=== PATIENT | female | born 1965 | race Caucasian/White ===

== ENCOUNTER → 2016-09-26 | Outpatient (CLI) | payer BC ==
--- NOTE | 2016-09-26 16:50 | XR ---
Lumbosacral spine HISTORY: Low back pain 5 views of the lumbosacral spine Lumbar vertebral bodies show preserved height, alignment, and bone mineralization is reduced. No spon dylolysis. There is multilevel spondylosis. Loss of disc height present at the intervertebral levels. Sclerosis present in the lower lumbar spine posterior elements. There are vascular calcifications pr esent. IMPRESSION: Degenerative disc disease, osteopenia, facet arthropathy
== END | disposition home or self-care (01) ==
LOC: RADXRMAIN 14:39
PROVIDERS: ATTEND Family Medicine
DX: M51.36 Other intervertebral disc degeneration, lumbar region (principal); M46.86 Other specified inflammatory spondylopathies, lumbar region; M85.80 Other specified disorders of bone density and structure, unspecified site
CPT/HCPCS: 72110

== ENCOUNTER 2017-06-25 16:53 | Observation (INO) | payer BC ==
--- NOTE | 2017-06-25 17:26 | ED ---
General Adult HPI - General Chief complaint: Dizziness Stated complaint: Dizziness Time Seen by Provider: 06/25/17 17:00 Source: patient, RN notes reviewed Mode of arrival: wheelchair Limitations: no limitations - History of Present Illness Initial comments: This a 51-year-old female who presents emergency department with chief complaint of near syncopal episodes 2 in the last 12 hours. Patient states she got up in the middle the night was in the bathroom when all of a sudden she felt as though she's given a passout had it down to her knees before she did. Patient states she had another episode today and she decided to come the emergency department. Patient states at no time did she have any chest pain. Patient denies any difficulty breathing or shortness of breath. Patient denies any palpitations. Patient denies abdominal pain patient denies nausea vomiting diarrhea. Patient denied headache patient denied numbness weakness. Patient denies any current lightheadedness or dizziness. Patient states currently she feels fine and has no symptoms. - Related Data Home Medications Medication Instructions Recorded Confirmed ALPRAZolam [Xanax] 0.25 mg PO Q8H PRN 06/25/17 06/25/17 Atenolol [Tenormin] 50 mg PO BID 06/25/17 06/25/17 Losartan Potassium [Cozaar] 100 mg PO DAILY 06/25/17 06/25/17 Allergies Allergy/AdvReac Type Severity Reaction Status Date / Time codeine AdvReac Nausea & Verified 06/25/17 17:18 Vomiting Review of Systems ROS Statement: Those systems with pertinent positive or pertinent negative responses have been documented in the HPI. ROS Other: All systems not noted in ROS Statement are negative. Past Medical History Past Medical History: Hypertension Additional Past Medical History / Comment(s): palpitations History of Any Multi-Drug Resistant Organisms: None Reported Past Surgical History: Tonsillectomy Past Anesthesia/Blood Transfusion Reactions: No Reported Reaction Past Psychological History: No Psychological Hx Reported Smoking Status: Former smoker Past Alcohol Use History: None Reported Past Drug Use History: None Reported General Exam - General Exam Comments Initial Comments: GENERAL: Patient is well-developed and well-nourished. Patient is nontoxic and well- hydrated and is in no acute distress. ENT: Neck is soft and supple. No significant lymphadenopathy is noted. Oropharynx is clear. Moist mucous membranes. Neck has full range of motion without eliciting any pain. EYES: The sclera were anicteric and conjunctiva were pink and moist. Extraocular movements were intact and pupils were equal round and reactive to light. Eyelids were unremarkable. PULMONARY: Unlabored respirations. Good breath sounds bilaterally. No audible rales rhonchi or wheezing was noted. CARDIOVASCULAR: There is a regular rate and rhythm without any murmurs gallops or rubs. ABDOMEN: Soft and nontender with normal bowel sounds. No palpable organomegaly was noted. There is no palpable pulsatile mass. SKIN: Skin is clear with no lesions or rashes and otherwise unremarkable. NEUROLOGIC: Patient is alert and oriented x3. Cranial nerves II through XII are grossly intact. Motor and sensory are also intact. Normal speech, volume and content. Symmetrical smile. MUSCULOSKELETAL: Normal extremities with adequate strength and full range of motion. No lower extremity swelling or edema. No calf tenderness. LYMPHATICS: No significant lymphadenopathy is noted PSYCHIATRIC: Normal psychiatric evaluation. Limitations: no limitations Course Vital Signs 06/25/17 06/25/17 06/25/17 17:00 17:43 18:28 Temperature 98.1 F Pulse Rate 73 59 L Pulse Rate [ 60 Sitting] Pulse Rate [ 63 Standing] Pulse Rate [ 59 L Supine] Respiratory 20 16 Rate Blood Pressure 170/88 170/87 Blood Pressure 169/81 [Sitting] Blood Pressure 173/96 [Standing] Blood Pressure 186/95 [Supine] O2 Sat by Pulse 100 98 Oximetry Medical Decision Making - Medical Decision Making EKG shows normal sinus rhythm at 69 bpm W[place] interval 270 QRS is 72 QT interval 408 QTC is 437. Patient's EKG shows inverted T waves in the precordial leads these are seen in previous EKG. Chest x-ray shows no acute abnormality - Lab Data Result diagrams: 06/25/17 17:38 06/25/17 17:38 Lab Results 06/25/17 06/25/17 06/25/17 Range/Units 17:38 17:38 17:38 WBC 7.9 (3.8-10.6) k/uL RBC 4.59 (3.80-5.40) m/uL Hgb 13.9 (11.4-16.0) gm/dL Hct 42.4 (34.0-46.0) % MCV 92.4 (80.0-100.0) fL MCH 30.4 (25.0-35.0) pg MCHC 32.9 (31.0-37.0) g/dL RDW 13.9 (11.5-15.5) % Plt Count 302 (150-450) k/uL Neutrophils % 63 % Lymphocytes % 30 % Monocytes % 4 % Eosinophils % 1 % Basophils % 1 % Neutrophils # 4.9 (1.3-7.7) k/uL Lymphocytes # 2.3 (1.0-4.8) k/uL Monocytes # 0.4 (0-1.0) k/uL Eosinophils # 0.1 (0-0.7) k/uL Basophils # 0.1 (0-0.2) k/uL PT (9.0-12.0) sec INR (<1.2) APTT (22.0-30.0) sec Sodium 142 (137-145) mmol/L Potassium 4.2 (3.5-5.1) mmol/L Chloride 105 (98-107) mmol/L Carbon Dioxide 23 (22-30) mmol/L Anion Gap 14 mmol/L BUN 15 (7-17) mg/dL Creatinine 1.10 H (0.52-1.04) mg/dL Est GFR (MDRD) Af Amer >60 (>60 ml/min/1.73 sqM) Est GFR (MDRD) Non-Af 52 (>60 ml/min/1.73 sqM) Glucose 96 (74-99) mg/dL Calcium 10.6 H (8.4-10.2) mg/dL Magnesium 1.7 (1.6-2.3) mg/dL Total Bilirubin 0.4 (0.2-1.3) mg/dL AST 19 (14-36) U/L ALT 31 (9-52) U/L Alkaline Phosphatase 121 (38-126) U/L Total Creatine Kinase 59 (30-135) U/L CK-MB (CK-2) <0.2 (0.0-2.4) ng/mL CK-MB (CK-2) Rel Index Troponin I <0.012 (0.000-0.034) ng/mL Total Protein 7.7 (6.3-8.2) g/dL Albumin 4.5 (3.5-5.0) g/dL 06/25/17 Range/Units 17:38 WBC (3.8-10.6) k/uL RBC (3.80-5.40) m/uL Hgb (11.4-16.0) gm/dL Hct (34.0-46.0) % MCV (80.0-100.0) fL MCH (25.0-35.0) pg MCHC (31.0-37.0) g/dL RDW (11.5-15.5) % Plt Count (150-450) k/uL Neutrophils % % Lymphocytes % % Monocytes % % Eosinophils % % Basophils % % Neutrophils # (1.3-7.7) k/uL Lymphocytes # (1.0-4.8) k/uL Monocytes # (0-1.0) k/uL Eosinophils # (0-0.7) k/uL Basophils # (0-0.2) k/uL PT 9.8 (9.0-12.0) sec INR 1.0 (<1.2) APTT 23.9 (22.0-30.0) sec Sodium (137-145) mmol/L Potassium (3.5-5.1) mmol/L Chloride (98-107) mmol/L Carbon Dioxide (22-30) mmol/L Anion Gap mmol/L BUN (7-17) mg/dL Creatinine (0.52-1.04) mg/dL Est GFR (MDRD) Af Amer (>60 ml/min/1.73 sqM) Est GFR (MDRD) Non-Af (>60 ml/min/1.73 sqM) Glucose (74-99) mg/dL Calcium (8.4-10.2) mg/dL Magnesium (1.6-2.3) mg/dL Total Bilirubin (0.2-1.3) mg/dL AST (14-36) U/L ALT (9-52) U/L Alkaline Phosphatase (38-126) U/L Total Creatine Kinase (30-135) U/L CK-MB (CK-2) (0.0-2.4) ng/mL CK-MB (CK-2) Rel Index Troponin I (0.000-0.034) ng/mL Total Protein (6.3-8.2) g/dL Albumin (3.5-5.0) g/dL Disposition Clinical Impression: Near syncope Disposition: ADMITTED IP TO THIS HOSP Referrals: Osvaldo Nazario Jr, [Primary Care Provider] - 1-2 days Time of Disposition: 19:17
[2017-06-25 17:49] LABS: Basophils # (A) 0.1 k/uL (0-0.2); Basophils % (A) 1 %; CH 30.6; CHCM 33.3; Eosinophils # (A) 0.1 k/uL (0-0.7); Eosinophils % (A) 1 %; HCT 42.4 % (34.0-46.0); HDW 2.44; HGB 13.9 gm/dL (11.4-16.0); Luc # (Auto) 0.13; Luc % (Auto) 2; Lymphocytes # (A) 2.3 k/uL (1.0-4.8); Lymphocytes % (A) 30 %; MCH 30.4 pg (25.0-35.0); MCHC 32.9 g/dL (31.0-37.0); MCV 92.4 fL (80.0-100.0); Mean Platelet Volume 6.9; Monocytes # (A) 0.4 k/uL (0-1.0); Monocytes % (A) 4 %; Neutrophils # (A) 4.9 k/uL (1.3-7.7); Neutrophils % (A) 63 %; RBC 4.59 m/uL (3.80-5.40); RDW 13.9 % (11.5-15.5); WBC 7.9 k/uL (3.8-10.6); WBC (Perox) 7.76
[2017-06-25 18:03] LABS: ALT 31 U/L (9-52); AST 19 U/L (14-36); Alkaline Phosphatase 121 U/L (38-126); Anion Gap 14 mmol/L; Blood Urea Nitrogen 15 mg/dL (7-17); Calcium 10.6 mg/dL (8.4-10.2); Carbon Dioxide 23 mmol/L (22-30); Chloride 105 mmol/L (98-107); Glucose 96 mg/dL (74-99); Magnesium 1.7 mg/dL (1.6-2.3); Non-African American GFR(MDRD) 52 (>60 ml/min/1.73 sqM); Potassium 4.2 mmol/L (3.5-5.1); Sodium 142 mmol/L (137-145); Total Bilirubin 0.4 mg/dL (0.2-1.3); Total Protein 7.7 g/dL (6.3-8.2)
[2017-06-25 18:13] LABS: Creatine Kinase 59 U/L (30-135)
--- NOTE | 2017-06-25 18:16 | XR ---
EXAMINATION TYPE: XR chest 2V DATE OF EXAM: 06/25/2017 COMPARISON: 11/12/2014 HISTORY: Chest pain TECHNIQUE: Frontal and lateral views of the chest are obtained. FINDINGS: Heart and mediastinum are normal. Lungs are clear. Diaphragm is normal. There are chest le ads. Bony thorax appears intact. IMPRESSION: Normal chest. No change.
[2017-06-25 18:24] LABS: Partial Thromboplastin Time 23.9 sec (22.0-30.0); Prothrombin Time 9.8 sec (9.0-12.0)
[2017-06-25 18:26] LABS: Creatine Kinase MB <0.2 ng/mL (0.0-2.4); Troponin I <0.012 ng/mL (0.000-0.034)
[2017-06-25] MEDS ORDERED: SODIUM CHLORIDE 0.9% 1,000 ML IV ONE (19:17)
--- NOTE | 2017-06-26 08:50 | ECHOF ---
Referral Reason:Near syncope MEASUREMENTS -------- HEIGHT: 165.1 cm WEIGHT: 79.4 kg BP: 128/76 RVIDd: 2.9 cm (< 3.3) IVSd: 0.9 cm (0.6 - 1.1) LVIDd: 4.1 cm (3.9 - 5.3) LVPWd: 1.0 cm (0.6 - 1.1) IVSs: 1.2 cm LVIDs: 3.9 cm LVPWs: 1.0 cm LAESV Index (A-L): 23.98 ml/m Ao Diam: 3.4 cm (2.0 - 3.7) AV Cusp: 2.0 cm (1.5 - 2.6) LA Diam: 2.8 cm (2.7 - 3.8) MV EXCURSION: 22.473 mm (> 18.000) MV EF SLOPE: 87 mm/s (70 - 150) EPSS: 0.3 cm MV E Forrest: 0.69 m/s MV DecT: 230 ms MV A Forrest: 0.62 m/s MV E/A Ratio: 1.10 RAP: 5.00 mmHg RVSP: 32.00 mmHg FINDINGS -------- Sinus rhythm. This was a technically adequate study. The left ventricular size is normal. There is mild concentric left ventricular hypertrophy. Overall left ventricular systolic function is normal with, an EF between 55 - 60 %. The right ventricle is normal in size. Normal LA size by volume 22+/-6 ml/m2. The right atrial size is normal. The aortic valve is trileaflet, and appears structurally normal. No aortic stenosis or regurgitation. Mild mitral regurgitation is present. Mild tricuspid regurgitation present. There is no evidence of pulmonary hypertension. The right ventricular systolic pressure, as measured by Doppler, is 32.00mmHg. Trace/mild (physiologic) pulmonic regurgitation. The aortic root size is normal. There is no pericardial effusion. CONCLUSIONS -------- 1. The left ventricular size is normal. 2. Trace/mild (physiologic) pulmonic regurgitation. 3. The aortic root size is normal. 4. There is no pericardial effusion. 5. There is mild concentric left ventricular hypertrophy. 6. Overall left ventricular systolic function is normal with, an EF between 55 - 60 %. 7. Normal LA size by volume 22+/-6 ml/m2. 8. The aortic valve is trileaflet, and appears structurally normal. No aortic stenosis or regurgitation. 9. Mild mitral regurgitation is present. 10. Mild tricuspid regurgitation present. 11. There is no evidence of pulmonary hypertension. 12. The right ventricular systolic pressure, as measured by Doppler, is 32.00mmHg. [place]HE[place] OPERATOR: Renee Zee RDCS
[2017-06-26] MEDS ORDERED: ALPRAZolam 0.25 MG TAB PO PRN (09:57)
[2017-06-26] MEDS ORDERED: LOSARTAN 50 MG TAB PO SCH (10:00)
[2017-06-26] MEDS ORDERED: ATENOLOL 50 MG TAB PO SCH (10:00)
--- NOTE | 2017-06-26 10:07 | P.HPIM ---
History of Present Illness H&P Date: 06/26/17 Chief Complaint: Near Syncope 51-year-old female who presented to the emergency room on 06/25/2017 with a chief complaint of "feeling like I'm going to pass out". She states she went to bed Friday night and was feeling fine. She woke up at 3 AM to use the bathroom, she was sitting on the toilet, and felt that she was going to pass out. She states she was not straining to have a bowel movement at the time. She said the episode lasted approximately 20 minutes. She felt like the room was narrowing in front of her. She also states that she felt like her ears were plugged and she could not hear anything around her which resolved after the episode. She states she was also experiencing shortness of breath during the episode, which she states may have been from anxiety. She also states she was extremely diaphoretic. She started feeling better and was able to go back to bed. She states she woke up and went to work. 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 She states approximately 4 PM she had similar symptoms that came out of nowhere. She denies any chest pain or pressure during these episodes. She decided to come to the emergency room for evaluation. The patient has a history of hypertension and takes atenolol 50 mg twice a day and losartan 100 mg daily. She is a former smoker and states she quit smoking 8 years ago. The patient was hospitalized in 2014 with complaints of chest pain. Cardiac catheterization was performed at that time which revealed normal coronary arteries. In the emergency room, an EKG was completed which showed normal sinus rhythm. It also showed inverted T waves in the precordial leads which was unchanged when compared to the previous EKG per the emergency room physician. An echo was completed which shows an ejection fraction 55-60%, mild tricuspid regurgitation, and mild mitral regurgitation. The patient was seen and examined at the bedside. She states she is currently feeling fine with no concerns or complaints. She states she does have a mild headache, which she attributes to not having any caffeine this morning as she is a daily morning caffeinated pop drinker. She denies any chest pain or pressure. Denies shortness of breath. Denies nausea or vomiting. Denies lightheadedness or dizziness. Denies any urinary symptoms. Her heart rate is ranging between 57 and 64. Her blood pressure this morning was 137/76. She is maintaining an oxygen saturation greater than 97% on room air. Review of Systems Those systems with pertinent positive or pertinent negative responses have been documented in the HPI Past Medical History Past Medical History: Chest Pain / Angina, Hypertension, Osteoarthritis (OA) Additional Past Medical History / Comment(s): 06-25-17 PT STATED SHE HAD 2 NEAR SYNCOPAL EPISODES IN A 12 HOURS SPAN OF TIME. OTHER PMH: palpitations, CONSTIPATION-USUALLY GOES EVERY 3-4 DAYS(LAST BM 06-24-17), PAST UTI. STRESS TEST 2014, "IRREG HEART BEAT", GANGLION CYSTS, CHRONCI LOWER BACK PAIN/ HERNIATED DISCS, "DIZZY SPELLS" History of Any Multi-Drug Resistant Organisms: None Reported Past Surgical History: Heart Catheterization, Tonsillectomy Additional Past Surgical History / Comment(s): TOOTH EXTRACTIONS WEARS TOP DENTURE Past Anesthesia/Blood Transfusion Reactions: Previous Problems w/ Anesthesia Additional Past Anesthesia/Blood Transfusion Reaction / Comment(s): DIFFICULTY WAKING AFTER AA. SENSATIVE TO MEDICATIONS. "A LITTLE GOES A LONG WAY" Smoking Status: Former smoker - Past Family History Mother Family Medical History: Cancer Additional Family Medical History / Comment(s): BREAST.LIVER CANCER Medications and Allergies Home Medications Medication Instructions Recorded Confirmed Type ALPRAZolam [Xanax] 0.25 mg PO Q8H PRN 06/25/17 06/25/17 History Atenolol [Tenormin] 50 mg PO BID 06/25/17 06/25/17 History Losartan Potassium [Cozaar] 100 mg PO DAILY 06/25/17 06/25/17 History Allergies Allergy/AdvReac Type Severity Reaction Status Date / Time codeine AdvReac Nausea & Verified 06/25/17 17:18 Vomiting Physical Exam Vitals: Vital Signs Temp Pulse Pulse Pulse Pulse Pulse Resp 06/26/17 07:58 98 F 57 L 16 06/26/17 04:00 16 06/26/17 03:43 98.0 F 64 16 06/25/17 22:30 98.0 F 59 L 18 06/25/17 22:00 18 06/25/17 20:11 97.7 F 62 16 06/25/17 18:28 59 L 16 06/25/17 17:43 60 63 59 L 06/25/17 17:00 98.1 F 73 20 BP BP BP BP BP Pulse Ox 06/26/17 07:58 137/76 97 06/26/17 04:00 06/26/17 03:43 128/76 97 06/25/17 22:30 141/78 97 06/25/17 22:00 06/25/17 20:11 186/99 97 06/25/17 18:28 170/87 98 06/25/17 17:43 169/81 173/96 186/95 06/25/17 17:00 170/88 100 Intake and Output 06/25/17 06/26/17 06/26/17 22:59 06:59 14:59 Intake Total 236 Balance 236 Intake: Oral 236 Other: # Voids 1 1 Weight 79.379 kg GENERAL: Alert and oriented. Appears in no acute distress. Pleasant. RESPIRATORY: Lungs clear bilaterally. No use of accessory muscles. Patient maintaining oxygen saturation greater than 92%. CARDIOVASCULAR: S1 and S2 noted. No murmurs auscultated. No JVD noted. EXTREMITIES: No edema noted. Palpable pedal pulses +2. ABDOMEN: No distention noted. Abdomen soft and round. Normal active bowel sounds auscultated 4 quadrants. No pain or tenderness noted upon palpation. Results CBC & Chem 7: 06/25/17 17:38 06/25/17 17:38 Labs: Abnormal Lab Results - Last 24 Hours (Table) 06/25/17 Range/Units 17:38 Creatinine 1.10 H (0.52-1.04) mg/dL Calcium 10.6 H (8.4-10.2) mg/dL Thrombosis Risk Factor Assmnt - Choose All That Apply Any of the Below Risk Factors Present?: Yes Each Factor Represents 1 point: Age 41-60 years, Obesity (BMI >25) Other Risk Factors: No Other congenital or acquired thrombophilia - If yes, enter type in comment: No Thrombosis Risk Factor Assessment Total Risk Factor Score: 2 Thrombosis Risk Factor Assessment Level: Low Risk Assessment and Plan Plan: ASSESSMENT: -Near syncopal episode 2 with associated diaphoresis and nausea, present on admission -Hypertensive urgency in the emergency room, resolved -Mild bradycardia with heart rate in the high 50s -History of essential hypertension -History of tobacco abuse, in remission, patient quit smoking 8 years ago PLAN: -Hold atenolol at this time. Patient HR 55-65 and has missed a dose of atenolol. -Resume other home medications -Begin hydralazine 25 BID -Monitor labs -GI prophylaxis: Pepcid 20 mg by mouth twice a day -DVT prophylaxis: Heparin 5000 units subcu every 8 hours -Monitor vital signs and address as appropriate -Further recommendations to follow The above impression and plan of care have been discussed and directed by signing physician. Misty Elizabeth, nurse practitioner, acting as scribe for signing physician.
[2017-06-26] MEDS ORDERED: hydrALAZINE HCL 25 MG TAB PO SCH (10:45)
[2017-06-26 11:46] VITALS: TEMP 97.8
--- NOTE | 2017-06-26 14:59 | US ---
EXAMINATION TYPE: US carotid duplex BILAT DATE OF EXAM: 06/26/2017 COMPARISON: NONE CLINICAL HISTORY: syncope. EXAM MEASUREMENTS: RIGHT: Peak Systolic Velocity (PSV) cm/sec ----- Right CCA: 72.6 ----- Right ICA: 112.9 ----- Right ECA: 74.1 ICA/CCA ratio: 1.6 RIGHT: End Diastole cm/sec ----- Right CCA: 26.0 ----- Right ICA: 51.5 ----- Right ECA: 9.5 LEFT: Peak Systolic Velocity (PSV) cm/sec ----- Left CCA: 78.4 ----- Left ICA: 119.4 ----- Left ECA: 90.3 ICA/CCA ratio: 1.5 LEFT: End Diastole cm/sec ----- Left CCA: 27.5 ----- Left ICA: 49.9 ----- Left ECA: 7.9 VERTEBRALS (direction of flow): Right Vertebral: Antegrade Left Vertebral: Antegrade Rhythm: Normal Mild amount of plaque visualized bilateral bulbs. No elevated velocities IMPRESSION: 1. Mild amount of atherosclerotic plaque bilaterally with no significant hemodynamic stenosis.
--- NOTE | 2017-06-26 15:40 | P.DS ---
Providers Date of admission: 06/25/17 19:17 Expected date of discharge: 06/26/17 Attending physician: Osvaldo Nazario Primary care physician: [facility] Course: 51-year-old female who presented to the emergency room on 06/25/2017 with a chief complaint of "feeling like I'm going to pass out". She states she went to bed Friday night and was feeling fine. She woke up at 3 AM to use the bathroom, she was sitting on the toilet, and felt that she was going to pass out. She states she was not straining to have a bowel movement at the time. She said the episode lasted approximately 20 minutes. She felt like the room was narrowing in front of her. She also states that she felt like her ears were plugged and she could not hear anything around her which resolved after the episode. She states she was also experiencing shortness of breath during the episode, which she states may have been from anxiety. She also states she was extremely diaphoretic. She started feeling better and was able to go back to bed. She states she woke up morning and went to work. 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 She states approximately 4 PM she had similar symptoms that came out of nowhere. She denies any chest pain or pressure during these episodes. She decided to come to the emergency room for evaluation. The patient has a history of hypertension and takes atenolol 50 mg twice a day and losartan 100 mg daily. She is a former smoker and states she quit smoking 8 years ago. The patient was hospitalized in 2014 with complaints of chest pain. Cardiac catheterization was performed at that time which revealed normal coronary arteries. In the emergency room, an EKG was completed which showed normal sinus rhythm. It also showed inverted T waves in the precordial leads which was unchanged when compared to the previous EKG per the emergency room physician. An echo was completed which shows an ejection fraction 55-60%, mild tricuspid regurgitation, and mild mitral regurgitation. The patient was seen and examined at the bedside. She states she is currently feeling fine with no concerns or complaints. She states she does have a mild headache, which she attributes to not having any caffeine this morning as she is a daily morning caffeinated pop drinker. She denies any chest pain or pressure. Denies shortness of breath. Denies nausea or vomiting. Denies lightheadedness or dizziness. Denies any urinary symptoms. The patient's heart rate is slightly bradycardic in the 50s and low 60s. This is without taking her second dose of atenolol yesterday. It was held while she was in the hospital. The patient was started on hydralazine 25 mg twice a day and her atenolol was discontinued. The patient received her first dose of hydralazine while in the hospital. Her blood pressure is 143/85. Her heart rate is in the 60s at this time. The patient underwent a bilateral carotid Doppler which showed mild amount of arthrosclerotic plaque bilaterally with no significant hemodynamic stenosis. The patient was deemed stable for discharge per Dr. Nazario. She is to follow- up in his office within 1-2 days. DISCHARGE DIAGNOSIS: -Near syncopal episode 2 with associated diaphoresis and nausea, present on admission, resolved -Hypertensive urgency in the emergency room, resolved -Mild bradycardia with heart rate in the high 50s -History of essential hypertension -History of tobacco abuse, in remission, patient quit smoking 8 years ago The above impression and plan of care have been discussed and directed by signing physician. Misty Elizabeth, nurse practitioner, acting as scribe for signing physician. Plan - Discharge Summary Discharge Rx Participant: No New Discharge Prescriptions: New hydrALAZINE HCL [Apresoline] 25 mg PO BID #60 tab Continue Losartan Potassium [Cozaar] 100 mg PO DAILY ALPRAZolam [Xanax] 0.25 mg PO Q8H PRN PRN Reason: Anxiety Discontinued Atenolol [Tenormin] 50 mg PO BID Discharge Medication List ALPRAZolam [Xanax] 0.25 mg PO Q8H PRN 06/25/17 [History] Losartan Potassium [Cozaar] 100 mg PO DAILY 06/25/17 [History] hydrALAZINE HCL [Apresoline] 25 mg PO BID #60 tab 06/26/17 [Rx] Follow up Appointment(s)/Referral(s): Osvaldo Nazario Jr, [Primary Care Provider] - 1-2 days Discharge Disposition: HOME SELF-CARE
[2017-06-26 15:49] VITALS: BP 143/84; PULSE 72; RESP 18
[2017-06-26] MEDS ORDERED: HEPARIN SODIUM,PORCINE 5,000 UNIT/ML 1 ML VIAL SQ SCH (16:00)
[2017-06-26] MEDS ORDERED: FAMOTIDINE 20 MG TAB PO SCH (21:00)
== END 2017-06-26 16:33 | disposition home or self-care (01) ==
LOC: EC 16:53 → 3OBS 19:17
PROVIDERS: ADMIT Family Medicine; ATTEND Family Medicine
DX: R55 Syncope and collapse (principal); R11.0 Nausea; R61 Generalized hyperhidrosis; I16.0 Hypertensive urgency; I10 Essential (primary) hypertension; R00.1 Bradycardia, unspecified; R06.02 Shortness of breath; R51 Headache; E66.9 Obesity, unspecified; Z68.29 Body mass index [BMI] 29.0-29.9, adult; Z87.891 Personal history of nicotine dependence; Z79.899 Other long term (current) drug therapy; Z88.5 Allergy status to narcotic agent; Z80.0 Family history of malignant neoplasm of digestive organs
CPT/HCPCS: 99285; 96360; 96361 ×2; 36415; 93005; 93306; 80053; 82550; 82553; 83735; 84484; 85025; 85610; 85730; 71020; 93880; G0378 ×2

== ENCOUNTER → 2017-07-14 | Outpatient (CLI) | payer BC ==
--- NOTE | 2017-07-14 08:32 | CT ---
EXAMINATION TYPE: CT brain giacomo mello DATE OF EXAM: 07/14/2017 COMPARISON: NONE HISTORY: Vertigo, cervical radiculopathy CT DLP: [address] of the brain was performed. The ventricles, basal cisterns and sulci overlying the cerebral convexities demonstrate minimal enlar gement. There is no evidence for intracranial hemorrhage or sulcal effacement. There is decreased attenuatio n about the periventricular white matter and deep white matter of both cerebral hemispheres, compatib le with chronic small vessel ischemia. No mass effects are seen. If symptoms persist consider MRI. Osseous calvarium is intact. IMPRESSION: 1. Age related atrophic and chronic small vessel ischemic change without acute intracranial process seen at this time. CT Cervical Spine: Unenhanced CT of the cervical spine was performed with bone and soft tissue window settings submitted . Coronal and sagittal reconstruction is obtained. There is normal alignment and prevertebral soft tissues. No evidence for acute cervical fracture . C2-3: Within normal limits. C3-4: Mild to moderate degenerative disc space narrowing. Diffuse posterior disc bulge with mild effa cement ventral thecal sac. No evidence for herniation or central stenosis. Mild left foraminal encroa chment identified. C4-5: Mild to moderate degenerative disc space narrowing. Right paracentral disc bulge with mild effa cement ventral thecal sac. No evidence for central stenosis. Mild right foraminal encroachment. C5-6: Mild degenerative disc space narrowing. Mild posterocentral disc bulge. No herniation protrusio n or central stenosis. Foramina are patent bilaterally. C6-7:Mild degenerative disc space narrowing. Mild posterocentral disc bulge. No herniation protrusion or central stenosis. Foramina are patent bilaterally. C7-T1: Within normal limits IMPRESSION: 1. Degenerative disc disease and disc bulging as discussed.
== END | disposition home or self-care (01) ==
LOC: RADCTMAIN 07:53
PROVIDERS: ATTEND Family Medicine
DX: M50.10 Cervical disc disorder with radiculopathy, unspecified cervical region (principal); M50.11 Cervical disc disorder with radiculopathy, high cervical region; G31.9 Degenerative disease of nervous system, unspecified; I67.89 Other cerebrovascular disease
CPT/HCPCS: 70450; 72125

== ENCOUNTER → 2017-09-13 | Outpatient (CLI) | payer BC ==
--- NOTE | 2017-09-13 13:52 | MR ---
EXAMINATION TYPE: MR iac wo/w con DATE OF EXAM: 09/13/2017 COMPARISON: CT brain 07/14/2017 HISTORY: Hearing loss, Vertigo TECHNIQUE: Multiplanar, multisequence images of the brain and brainstem is performed without and with IV contras t, utilizing 7.5 mL intravenous Gadavist . Small [id number] high-resolution images obtained throug h the internal auditory canals. FINDINGS: Diffusion weighted images demonstrate no evidence of a recent infarct or other diffusion ab normality. There is no extra-axial fluid collection. There are scattered deep white matter hyperinte nsities on inversion recovery and T2-weighted sequences especially in the frontal lobes, approximatel y 40-50 lesions are suspected. The ventricular system and cisternal spaces are normal in size and angella earance. The brain volume is age appropriate. Midline structures demonstrate normal morphology. The craniocervical junction appears within normal limits. Post contrast images demonstrate no abnormal enhancement. In specific the cerebellopontine a ngles are normal, there is no evident mass or abnormal enhancement along the internal auditory canals The dural venous sinuses appear patent. The visualized sinuses are remarkable for possible mucus ret ention cysts right maxillary sinus, and the globes are intact. IMPRESSION: Nonspecific white matter demyelination. Differential includes but not limited to hyperten panfilo, migraine headaches, vasculitis, chronic small vessel ischemia, and possibly less likely, consid er multiple sclerosis in the appropriate clinical setting. Possible mucus retention cysts in the maxi llary sinus on the right. No evident abnormality to account for patient's symptoms.
== END | disposition home or self-care (01) ==
LOC: RADMRIMAIN 10:46
PROVIDERS: ATTEND Otolaryngology
DX: G37.9 Demyelinating disease of central nervous system, unspecified (principal)
CPT/HCPCS: 82565; 70553; A9581